=== PATIENT | female | born 1960 | race Caucasian/White ===

== ENCOUNTER 2016-12-08 19:38 | Emergency (ER) | payer MEDICAID ==
[~2016-12-08] VITALS: Ht 157.5 cm; Wt 93.6 kg
[2016-12-08 20:09] VITALS: BP 153/88
--- NOTE | 2016-12-08 20:44 | NUR ---
LABS DRAWN BY PHLEB
[2016-12-08 20:59] LABS: BASOPHILS # (AUTO) 0.2 K/uL (0.00-0.22); EOSINOPHILS # (AUTO) 0.2 K/uL (0-0.4); EOSINOPHILS % (AUTO) 2.5 % (0.0-4.0); HEMATOCRIT 41.8 % (36-48); HEMOGLOBIN 13.7 g/dL (12.0-16.0); LYMPHOCYTES # (AUTO) 2.8 K/uL (2.5-16.5); LYMPHOCYTES % (AUTO) 30.9 % (20.5-51.1); MEAN CORPUSCULAR HEMOGLOBIN 28 pg (27-31); MEAN CORPUSCULAR HGB CONC 33 g/dL (33-37); MEAN CORPUSCULAR VOLUME 86 fL (80-94); MONOCYTES # (AUTO) 0.5 K/uL (0.8-1.0); MONOCYTES % (AUTO) 5.7 % (1.7-9.3); NEUTROPHILS # (AUTO) 5.3 K/uL (1.8-7.7); NEUTROPHILS % (AUTO) 58.9 % (42.2-75.2); PLATELET COUNT (AUTO) 195 K/uL (140-450); RED BLOOD CELL COUNT(AUTO) 4.87 MIL/uL (4.20-5.40); RED CELL DISTRIBUTION WIDTH 13.5 % (11.6-13.7)
[2016-12-08 21:15] LABS: CALCIUM 8.9 mg/dL (8.5-10.1); CARBON DIOXIDE 26.7 mmol/L (21-32); CREATININE 0.7 mg/dL (0.6-1.3); POTASSIUM 3.7 mmol/L (3.5-5.1)
[2016-12-08 21:19] LABS: PARTIAL THROMBOPLASTIN TIME 26.4 secs (22-35.6); PROTHROMBIN TIME 10.1 secs (10.8-13.4)
[2016-12-08 21:20] LABS: TOTAL BILIRUBIN 0.3 mg/dL (0.0-1.0)
--- NOTE | 2016-12-08 23:17 | NUR ---
PT TAKEN TO BED 8
--- NOTE | 2016-12-08 23:19 | NUR ---
56 Y/O F W/C/O HIGH BLOOD PRESSURE, AND HIGH GLUCOSE. PT ALSO C/O R KNEE 6/10 PAIN. PT SEEN BY PMD AND SENT HER FOR HIGH BP AND LOW MAG OF 0.1. MED HX; HTN/DIABETES/ARTHRITIS. NO S/S OF DISTRESS NOTED AT THE MOMENT. 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
--- NOTE | 2016-12-08 23:40 | NUR ---
PT RESTING IN BED AWATING FOR RESULTS. NO S/S OF DISTRESS NOTED AT THE MOMENT.
--- NOTE | 2016-12-09 00:47 | NUR ---
Dr. Harley evaluating patient at bedside.
[2016-12-09 00:57] VITALS: BP 137/77
--- NOTE | 2016-12-09 00:57 | NUR ---
Patient discharged with v/s stable. Written and verbal after care instructions given and explained. Patient verbalized understanding. Ambulatory with steady gait. All questions addressed prior to discharge. Advised to follow up with PMD THIS WK OR RETURN TO ER IF CONDITION WORSENS.
== END 2016-12-09 00:57 | disposition home or self-care (01) ==
LOC: MED 19:38
DX: I10 Essential (primary) hypertension (principal); E83.42 Hypomagnesemia; E11.9 Type 2 diabetes mellitus without complications; Z88.0 Allergy status to penicillin
CPT/HCPCS: 36415; 80053; 81002; 81025; 82948; 83735; 83880; 84484; 85025; 85610; 85730; 99284